=== PATIENT | female | born 1925 | race Caucasian/White ===

== ENCOUNTER 2016-06-18 14:12 | Inpatient (IN) | payer OTHER, MEDICAID ==
[~2016-06-18] VITALS: Ht 154.9 cm; Wt 63.5 kg
[2016-06-18 14:15] VITALS: BP 119/64
--- NOTE | 2016-06-18 14:15 | NUR ---
Pt to bed 3 by EMS at this time.
--- NOTE | 2016-06-18 14:23 | NUR ---
PT BIBA FOR EVALUATION OF SYNCOPAL EPISODE 30 MINUTES AGO. HX DM, HTN. DENIES N/V/D; SKIN IS PINK/WARM/DRY; AAOX4 WITH EVEN AND STEADY GAIT; LUNGS CLEAR BL; HR EVEN AND REGULAR; PT DENIES ANY FEVER, CP, SOB, OR COUGH AT THIS TIME; PATIENT STATES PAIN OF 5/10 NECK PAIN AT THIS TIME; VSS; PATIENT POSITIONED FOR COMFORT; HOB ELEVATED; BEDRAILS UP X2; BED DOWN. ER MD MADE AWARE OF PT STATUS.
[2016-06-18] MEDS ORDERED: KETOROLAC 30 MG/ML VIAL IVP ONE (16:55)
[2016-06-18] MEDS ORDERED: ASPIRIN 81 MG TAB.CHEW PO SCH (17:20)
[2016-06-18] MEDS ORDERED: INSULIN ASPART SLIDING SCALE 100 UNITS/ML VIAL SUBQ PRN (17:25)
[2016-06-18] MEDS ORDERED: cefTRIAXone 1,000 MG VIAL ONE (17:34)
[2016-06-18 18:10] VITALS: BP 146/71
--- NOTE | 2016-06-18 18:18 | NUR ---
Pt report given to ALVINA LOMAX. Transfer of care at this time.
[2016-06-18] MEDS: NACL 0.9% 1,000 ML IV SCH (18:36)
--- NOTE | 2016-06-18 18:38 | NUR ---
RECEIVED PATIENT FROM ER WITH CHIEF COMPLAINING OF FAINTING. PATIENT APPEARED TO BE CALM, FULLY AWAKE AND RESTING WELL IN BED. NO SIGN OF SOB OR RESPIRATORY DISTRESS NOTED AT THIS TIME. ON ROOM AIR AT 97% O2 SAT. INITIAL ASSESSMENT DONE. SKIN INTACT. PATIENT DENIED ANY PAIN OR CHEST DISCOMFORT. DENIED N/V. DENIED DIZZINESS OR HEADACHE. PATIENT HAS IV 18G TO LEFT AC INTACT AND INFUSING WELL WITH IVF. LUNG SOUNDED CLEAR AND BOWEL SOUNDED ACTIVE. MRSA SWAB DONE. REORIENTED PATIENT TO CURRENT UNIT. ALSO INSTRUCTED PATIENT TO PUSH CALL LIGHT WHEN NEEDED HELPS ALSO PLAN OF CARE AND MEDICATION REGIMENT DISCUSSED, PATIENT VERBALIZED UNDERSTANDING. VSS. CALL LIGHT WITHIN REACH. WILL CONTINUE TO MONITOR.
[2016-06-18] MEDS ORDERED: ATORVASTATIN 20 MG TAB PO SCH (18:45)
--- NOTE | 2016-06-18 18:47 | NUR ---
SCD APPLIED TO BOTH PATIENT'S LEGS, PATIENT TOLERATED WELL.
[2016-06-18] MEDS: ATORVASTATIN 20 MG TAB PO SCH (19:00)
--- NOTE | 2016-06-18 19:12 | NUR ---
ENDORSED PATIENT CURRENT PLAN OF CARE TO NIGHT NURSE CARI LOMAX. PATIENT RESTING WELL IN BED WITH NO SIGN OF DISTRESS NOTED.
--- NOTE | 2016-06-18 19:20 | NUR ---
RECEIVED REPORT FROM DAY NURSEALVINA. PATIENT RESTING IN BED, WATCHING TELEVISION. NO RESPIRATORY DISTRESS, SOB, OR DISCOMFORT. PATIENT DENIES ANY DIZZINESS AT THIS TIME. INITIAL ASSESSMENT AND BODY CHECK DONE. PATIENT IS AOX4, SKIN IS INTACT, DRYNESS AND DISCOLORATION NOTED TO PLANTAR AREA, IV ACCESS TO LEFT AC 18G, PATENT. DISCUSSED PLAN OF CARE, MEDICATION REGIMENT, AND PAIN MANAGEMENT WITH PATIENT. PATIENT VERBALIZED UNDERSTANDING. PLACED PATIENT ON SAFETY/FALL PRECAUTIONS. CALL LIGHT LEFT WITHIN REACH, WILL CONTINUE TO MONITOR.
[2016-06-18 20:00] VITALS: BP 128/76
[2016-06-18] MEDS: BLOOD GLUCOSE MONITORING 1 DEV DEV FS SCH (21:19)
--- NOTE | 2016-06-18 21:45 | NUR ---
PATIENT STATING HAVING FOOT CRAMPS, REQUESTING TO STAND UP AT BEDSIDE. ASSISTED PATIENT TO STANDING POSITION AT BEDSIDE AND BACK INTO BED. PATIENT TOLERATED WELL. NO RESPIRATORY DISTRESS, SOB, OR DISCOMFORT. STILL WEAKNESS NOTED TO BLE, WILL CONTINUE TO MONITOR.
[2016-06-19] VITALS: BP 124/73
--- NOTE | 2016-06-19 01:02 | NUR ---
PATIENT IN BED, SLEEPING. NO RESPIRATORY DISTRESS, SOB, OR DISCOMFORT. CALL LIGHT LEFT WITHIN REACH, WILL CONTINUE TO MONITOR.
--- NOTE | 2016-06-19 03:10 | NUR ---
PATIENT ASLEEP. NO RESPIRATORY DISTRESS, SOB, OR DISCOMFORT. CALL LIGHT LEFT WITHIN REACH, WILL CONTINUE TO MONITOR.
[2016-06-19 04:00] VITALS: BP 118/56
--- NOTE | 2016-06-19 06:08 | NUR ---
PATIENT SLEEPING. NO RESPIRATORY DISTRESS, SOB, OR DISCOMFORT. CALL LIGHT LEFT WITHIN REACH, WILL CONTINUE TO MONITOR.
[2016-06-19] MEDS: BLOOD GLUCOSE MONITORING 1 DEV DEV FS SCH ×4 (06:25→21:03)
--- NOTE | 2016-06-19 07:08 | NUR ---
REPORT GIVEN TO DAY NURSEDIONICIO. PATIENT RESTING IN BED, STABLE. NO RESPIRATORY DISTRESS, SOB, OR DISCOMFORT. ALL NEEDS ATTENDED TO DURING SHIFT, CALL LIGHT LEFT WITHIN REACH.
--- NOTE | 2016-06-19 07:20 | NUR ---
RECEIVED REPORT FROM THE STUDENT ADMISSIONS CLERK NURSE AT BEDSIDE FOR CONTINUITY OF CARE. PATIENT IS AWAKE, ALERT, AND ORIENTED X4. ABLE TO FOLLOW COMMAND AND CLEAR SPEECH. IV ON THE LEFT AC ASYMPTOMATIC, INTACT, PATENT. IV FLUID INFUSING WELL. INITIAL ASSESSMENT DONE. ON ROOM AIR. NO SOB. SKIN INTACT. ABLE TO AMBULATE TO THE BATHROOM WITH ASSISTANCE. NO S/S OF DISTRESS. VITALS TAKEN IN NORMAL LIMIT. SAFETY MEASURED CHECKED AND WILL CONTINUE TO MONITOR. CALL LIGHT WITHIN REACH.
[2016-06-19 08:00] VITALS: BP 148/72
--- NOTE | 2016-06-19 08:12 | NUR ---
PATIENT HAS BEEN SCREENED AND CATEGORIZED MODERATE NUTRITION RISK. PATIENT WILL BE SEEN WITHIN 3-5 DAYS OF ADMISSION. 06/21/16-06/23/[address]
--- NOTE | 2016-06-19 09:00 | NUR ---
DUE MEDS GIVE, PATIENT TOLERATED WELL.
[2016-06-19] MEDS: ATORVASTATIN 20 MG TAB PO SCH (09:25)
[2016-06-19] MEDS: SACCHAROMYCES 250 MG CAP PO SCH ×2 (09:25→21:04)
--- NOTE | 2016-06-19 10:25 | NUR ---
CM NOTE INITIAL REVIEW FAXED TO [facility] / FAX# [phone], ATTN: KELI #[phone]
[2016-06-19 12:00] VITALS: BP 125/73
--- NOTE | 2016-06-19 12:00 | NUR ---
VITALS TAKEN AND WITHIN THE NORMAL LIMIT.
--- NOTE | 2016-06-19 14:17 | NUR ---
PATIENT IS AWAKE. NO S/S OF DISTRESS. DENIED ANY PAIN. FAMILY AT BEDSIDE.
[2016-06-19] MEDS ORDERED: FENOFIBRATE134 MG PO (14:47)
[2016-06-19] MEDS ORDERED: RANITIDINE150 M1 PO (14:47)
[2016-06-19] MEDS ORDERED: LOTENSIN20 MG PO (14:47)
[2016-06-19] MEDS ORDERED: LEVOTHYROXIN PO ×2 (14:47→14:58)
[2016-06-19 16:00] VITALS: BP 133/71
--- NOTE | 2016-06-19 16:00 | NUR ---
VITALS TAKEN AND WITHIN THE NORMAL LIMIT. WILL CONTINUE TO MONITOR. FAMILY AT BEDSIDE.
--- NOTE | 2016-06-19 16:30 | NUR ---
BLOOD SUGAR LEVEL TAKEN AND ITS 103. NO COVERAGE NEEDED.
[2016-06-19] MEDS: NACL 0.9% 1,000 ML IV SCH (18:05)
--- NOTE | 2016-06-19 19:28 | NUR ---
REPORT GIVEN TO RUBY ON [employer] WE[employer] DEVELOPER NURSE FOR CONTINUITY OF CARE AT BEDSIDE. PATIENT IN STABLE CONDITION AND ALL NEED MET AT THIS TIME.
--- NOTE | 2016-06-19 19:29 | NUR ---
RECEIVED PT FROM VALERIANO RN PT ISD [employer] AAOX4 AMBULATORY USING BSC VOIDING WELL, IV ON LEFT AC TKO INFUSING WELL ON TELEMETRY SB BBB ,; RELATIVES AT BED SIDE INITIAL ASSESSMENT DONE
[2016-06-19 20:00] VITALS: BP 125/68
--- NOTE | 2016-06-19 21:00 | NUR ---
BLOOD SUGAR TEST 114 NOT COVERAGE
[2016-06-19] MEDS ORDERED: ACETAMINOPHEN 325 MG TAB PO PRN (22:35)
[2016-06-19] MEDS ORDERED: KETOROLAC 30 MG/ML VIAL IVP PRN (22:35)
[2016-06-19] MEDS ORDERED: ACETAMINOPHEN 325 MG TAB ONE (22:42)
--- NOTE | 2016-06-19 22:42 | NUR ---
AT 2242 WAS GIVEN 650MG TYLENOL FOR HEADACHE.
[2016-06-20] VITALS: BP 111/56
--- NOTE | 2016-06-20 | NUR ---
PT IS ASSISTED TO BSC VO;HEAVENLY ODONNELL SB ON TELEMETRY
[2016-06-20 04:00] VITALS: BP 114/75
--- NOTE | 2016-06-20 04:00 | NUR ---
SPONGE BATH GIVEN, LINEN CHANGED SB ON TELEMETRY, NOT DISTRESS NOTED
[2016-06-20] MEDS: BLOOD GLUCOSE MONITORING 1 DEV DEV FS SCH ×3 (06:23→17:12)
[2016-06-20] MEDS ORDERED: LEVOTHYROXINE 0.112 MG TAB PO SCH (06:30)
--- NOTE | 2016-06-20 06:33 | NUR ---
BLOOD SUGAR TEST 98, PT USING BSC VOIDING WELL ON TELEMETRY SB
--- NOTE | 2016-06-20 07:09 | NUR ---
RECEIVED REPORT FROM NIGHT RN. PT RESTING IN BED. AAOX4. NO S/S OF ACUTE DISTRESS. PT DENIES PAIN. IV SITE PATENT AND INTACT. CALL LIGHT WITHIN REACH. SAFETY MEASURES ENSURED. BED ALARM ON. WILL CONTINUE TO MONITOR.
[2016-06-20 08:00] VITALS: BP 140/65
[2016-06-20] MEDS ORDERED: BISACODYL 5 MG TABEC PO SCH (08:00)
[2016-06-20] MEDS ORDERED: MAGNESIUM CITRATE 300 ML BTL PO SCH (08:00)
[2016-06-20] MEDS: SACCHAROMYCES 250 MG CAP PO SCH (08:52)
[2016-06-20] MEDS: ATORVASTATIN 20 MG TAB PO SCH (08:53)
[2016-06-20] MEDS ORDERED: BENAZEPRIL 20 MG TAB PO SCH (09:00)
[2016-06-20] MEDS ORDERED: FENOFIBRATE 48 MG TAB PO SCH (09:00)
--- NOTE | 2016-06-20 09:54 | NUR ---
PT RESTING IN BED. NO S/S OF ACUTE DISTRESS. PT DENIES PAIN. CALL LIGHT WITHIN REACH. WILL CONTINUE TO MONITOR.
[2016-06-20 12:00] VITALS: BP 107/65
--- NOTE | 2016-06-20 12:11 | NUR ---
CM NOTE ORDER FOR HOME HEALTH FOR HOME SAFETY EVAL SENT TO [facility] FAX# [phone] ATTN: KELI # [phone]
--- NOTE | 2016-06-20 12:22 | NUR ---
PT RESTING IN BED. NO S/S OF ACUTE DISTRESS. PT DENIES PAIN. CALL LIGHT WITHIN REACH. SAFETY MEASURES ENSURED. WILL CONTINUE TO MONITOR.
[2016-06-20 12:29] VITALS: BP 107/65
--- NOTE | 2016-06-20 12:57 | NUR ---
JOSE ROBERTO NOTE SPOKE WITH KELI OF [facility] PH# [phone] [phone] AND SHE SAID THE HOME HEALTH WHO WILL SEE THE PATIENT FOR HOME SAFETY EVALUATION IS [facility] FAX# [phone] PH# [phone]
--- NOTE | 2016-06-20 14:03 | NUR ---
PT RESTING IN BED. NO S/S OF ACUTE DISTRESS. PT DENIES PAIN. CALL LIGHT WITHIN REACH. FAMILY AT BEDSIDE. WILL CONTINUE TO MONITOR.
[2016-06-20] MEDS ORDERED: LEVAQUIN750 MG PO (14:51)
[2016-06-20] MEDS ORDERED: FLORASTOR 33 MG1 CAP PO (14:51)
--- NOTE | 2016-06-20 15:24 | NUR ---
CM NOTE LEFT A VOICEMAIL TO [facility] JOSE ROBERTO DICKEY PH# [phone] THAT THERE IS DISCHARGE ORDER FOR PATIENT TODAY. SPOKE WITH SHARI OF [facility] DEPT PH# [phone], THE HOME HEALTH WHO WILL BE FOLLOWING THE PATIENT FOR HOME SAFETY EVAL, AND INFORMED THEM THAT PATIENT IS DISCHARGED TODAY SO THEY CAN COME AND SEE THE PATIENT AT HOME.
--- NOTE | 2016-06-20 15:39 | NUR ---
PT CLEARED FOR DISCHARGE. DISCHARGE TEACHING PROVIDED. PT VERBALIZED UNDERSTANDING. PT STATES SHE IS UTD ON VACCINATIONS. AWAITING RIDE FROM SON.
[2016-06-20 16:00] VITALS: BP 135/57
--- NOTE | 2016-06-20 16:07 | NUR ---
PT RESTING IN BED. NO S/S OF ACUTE DISTRESS. PT DENIES PAIN. AWAITING SON FOR TRANSPORTATION.
== END 2016-06-20 17:50 | disposition home health service (06) | DRG 689 ==
LOC: MED 14:12 → MTU 17:05
PROVIDERS: ADMIT Family Medicine; ATTEND Family Medicine
DX: N39.0 Urinary tract infection, site not specified (principal); N17.0 Acute kidney failure with tubular necrosis; E44.0 Moderate protein-calorie malnutrition; D68.69 Other thrombophilia; G90.9 Disorder of the autonomic nervous system, unspecified; I10 Essential (primary) hypertension; E03.9 Hypothyroidism, unspecified; D32.9 Benign neoplasm of meninges, unspecified; M54.2 Cervicalgia; M47.9 Spondylosis, unspecified; E11.9 Type 2 diabetes mellitus without complications; J34.1 Cyst and mucocele of nose and nasal sinus; Z96.653 Presence of artificial knee joint, bilateral; W18.30XA Fall on same level, unspecified, initial encounter; Z90.2 Acquired absence of lung [part of]; Z68.26 Body mass index [BMI] 26.0-26.9, adult; Z85.118 Personal history of other malignant neoplasm of bronchus and lung; Y93.89 Activity, other specified; Y92.89 Other specified places as the place of occurrence of the external cause; Y99.8 Other external cause status